=== PATIENT | male | born 1970 | race Caucasian/White ===

== ENCOUNTER 2016-10-30 11:37 | Emergency (ER) | payer SELFPAY ==
[~2016-10-30] VITALS: Wt 72.6 kg
[~2016-10-30 11:37] MED LIST: CYCLOBENZAPRINE5 M3 PO; HYDROCODONE BIT1 T11 PO; NAPROSYN500 MG PO; PERCOCET 325 MG1 TA2 PO; PREDNISONE20 MG PO; ROBAXIN500 MG PO; TRAMADOL HCL50 MG; ULTRAM50 MG PO; VICODIN 5/500 505 MG PO
== END 2016-10-30 14:53 | disposition home or self-care (01) ==
LOC: ED 11:37
DX: M25.421 Effusion, right elbow (principal); R55 Syncope and collapse; F17.200 Nicotine dependence, unspecified, uncomplicated; Z88.0 Allergy status to penicillin; Z88.1 Allergy status to other antibiotic agents

== ENCOUNTER 2018-09-23 22:31 | Emergency (ER) | payer OTHER ==
[~2018-09-23] VITALS: Ht 167.6 cm; Wt 68.0 kg
[2018-09-24] MEDS ORDERED: CLINDAMYCIN HC300 MG PO (20:52)
== END 2018-09-23 23:20 | disposition home or self-care (01) ==
LOC: ED 22:31
DX: T15.92XA Foreign body on external eye, part unspecified, left eye, initial encounter (principal); S30.860A Insect bite (nonvenomous) of lower back and pelvis, initial encounter; S80.862A Insect bite (nonvenomous), left lower leg, initial encounter; S80.861A Insect bite (nonvenomous), right lower leg, initial encounter; Z88.0 Allergy status to penicillin; Z88.1 Allergy status to other antibiotic agents; W57.XXXA Bitten or stung by nonvenomous insect and other nonvenomous arthropods, initial encounter; Y93.89 Activity, other specified; Y92.89 Other specified places as the place of occurrence of the external cause; Y99.8 Other external cause status

== ENCOUNTER 2018-09-24 17:28 | Emergency (ER) | payer OTHER ==
[~2018-09-24] VITALS: Ht 165.1 cm; Wt 81.6 kg
[2018-09-24 18:29] LABS: BASO # 0.1 10*3/uL (0.0-0.1); BASO % 0.6 % (0.0-1.0); EOS # 0.2 10*3/uL (0.0-0.4); EOS % 2.1 % (1.0-4.0); HEMATOCRIT 46.6 % (42.0-52.0); HEMOGLOBIN 15.5 g/dl (14.0-18.0); LYMPH # 1.4 10*3/uL (1.3-4.4); LYMPH % 17.2 % (27.0-41.0); MEAN CELL VOLUME 94.5 fl (80.0-94.0); MEAN CORPUSCULAR HGB 31.4 pg (27.0-31.0); MEAN CORPUSCULAR HGB CONC 33.3 g/dl (33.0-37.0); MEAN PLATELET VOLUME 10.9 fl (9.6-12.3); MONO # 0.7 10*3/uL (0.1-1.0); MONO % 8.7 % (3.0-9.0); NEUT # 5.7 10*3/uL (2.3-7.9); NEUT % 71.2 % (47.0-73.0); PLATELET COUNT AUTOMATED 202 10*3/uL (130-400); RED BLOOD COUNT 4.93 10*6/uL (4.50-5.90)
[2018-09-24 18:43] LABS: ALBUMIN 3.8 gm/dl (3.1-4.5); ALKALINE PHOSPHATASE 75 U/L (45-117); BUN 14 mg/dl (7-24); CHLORIDE 103 mmol/L (98-107); CREATININE 1.18 mg/dL (0.70-1.30); SGOT/AST 15 IU/L (3-35); SGPT/ALT 20 U/L (12-78); SODIUM 138 mmol/L (136-145); TOTAL PROTEIN 7.3 gm/dL (6.4-8.2)
[2018-09-24] MEDS ORDERED: CLINDAMYCIN HC300 MG PO (20:52)
== END 2018-09-24 21:00 | disposition home or self-care (01) ==
LOC: ED 17:28
PROVIDERS: Physician Assistant
DX: L03.312 Cellulitis of back [any part except buttock and flank] (principal); R53.83 Other fatigue; F17.200 Nicotine dependence, unspecified, uncomplicated; Z88.0 Allergy status to penicillin; Z88.1 Allergy status to other antibiotic agents